=== PATIENT | male | born 1950 | race Caucasian/White ===

== ENCOUNTER → 2016-09-10 | Outpatient (CLI) | payer OTHER ==
[~2016-09-10] MED LIST: ASPI81TA28 PO; CYAN10005 PO; DULA0.5I; FOLI1TAB7 PO; LISI-461 PO; LVMI; METF-384 PO; MODA1TAB PO; ROSU20TA PO
[2016-09-10 14:48] LABS: LYME DISEASE AB IGG POS (NEG)
[2016-09-10 14:49] LABS: LYME DISEASE AB IGM POS (NEG)
[2016-09-13 22:40] LABS: 18KDIGG BAND REACTIVE (NONREACTIVE); 23KDIGG BAND REACTIVE (NONREACTIVE); 23KDIGM BAND REACTIVE (NONREACTIVE); 28KDIGG BAND NONREACTIVE (NONREACTIVE); 30KDIGG BAND REACTIVE (NONREACTIVE); 39KDIGG BAND REACTIVE (NONREACTIVE); 39KDIGM BAND NONREACTIVE (NONREACTIVE); 41KDIGG BAND REACTIVE (NONREACTIVE); 41KDIGM BAND NONREACTIVE (NONREACTIVE); 45KDIGG BAND NONREACTIVE (NONREACTIVE); 58KDIGG BAND NONREACTIVE (NONREACTIVE); 66KDIGG BAND REACTIVE (NONREACTIVE); 93KDIGG BAND NONREACTIVE (NONREACTIVE)
== END | disposition home or self-care (01) ==
LOC: C.LABMFLN 07:46
PROVIDERS: ATTEND Psychiatry & Neurology Neurology
DX: R47.81 Slurred speech (principal)

== ENCOUNTER → 2016-09-16 | Outpatient (CLI) | payer OTHER ==
--- NOTE | 2016-09-19 14:45 | POLYSOMNOGRAPH REPORT ---
CLINICAL DATA: A 65-year-old male with BMI of 30.25 referred by myself and Dr. Martin with a history of severe hypersomnolence without definite loud snoring or witnessed apnea. Initially a combination of PSG/ MSLT was requested but a home sleep study was demanded by the insurance company. On the evening of 09/16/2016, a home sleep apnea test was performed using a LLUSTRE type 3 monitor. RECORDING RESULTS: Total recording time was 10 hours. The patient's estimated sleep time and patient monitoring time was 8.7 hours. RESPIRATORY DATA: Moderate sleep apnea was documented. The SARWAT was 15.7. There were 10 obstructive, 5 mixed, and 4 central apneic episodes. There were 117 hypopneic episodes. The longest respiratory event was 46 seconds. OXIMETRY DATA: Nocturnal hypoxemia was documented. Oxygen hector was 82%. Mean saturation was 91%. Time below 89% was 37 minutes. HEART RATE DATA: Heart rates ranged from 52-64 beats per minute. SNORING DATA: Snoring was reported throughout the night. IMPRESSION: Moderate obstructive sleep apnea with a respiratory event index of 15.7 with nocturnal hypoxemia. RECOMMENDATIONS: The patient would benefit from a repeat sleep study with CPAP. ARMIND
== END | disposition home or self-care (01) ==
LOC: C.NEUR 09:54
PROVIDERS: ATTEND Internal Medicine Pulmonary Disease
DX: G47.10 Hypersomnia, unspecified (principal)

== ENCOUNTER → 2016-09-24 | Outpatient (CLI) | payer OTHER ==
[~2016-09-24] VITALS: Ht 172.7 cm; Wt 84.9 kg
[2016-09-24 12:17] VITALS: BP 125/87; PULSE 114; Ht 172.7 cm; Wt 84.9 kg
== END ==
LOC: C.NEUR 12:07
PROVIDERS: ATTEND Internal Medicine Pulmonary Disease
DX: G47.33 Obstructive sleep apnea (adult) (pediatric) (principal)

== ENCOUNTER → 2016-10-31 | Outpatient (CLI) | payer OTHER ==
[2016-10-31 13:42] LABS: ESTIMATED AVERAGE GLUCOSE 249 mg/dl; HA1C FLAG Normal (Normal)
[2016-10-31 13:49] LABS: RATIO 41.3 mcg/mg (0-30.0)
[2016-10-31 14:13] LABS: ALT/SGPT 42 U/L (12-78); AST/SGOT 34 U/L (15-37); BLOOD UREA NITROGEN 18 mg/dl (7-18); BUN/CREATININE RATIO 13.1 (10-20); CALCIUM 9.4 mg/dl (8.5-10.1); CARBON DIOXIDE 26 mmol/L (21-32); CHLORIDE 101 mmol/L (98-107); CHOLESTEROL 145 mg/dl (0-200); GLUCOSE 167 mg/dl (70-99); POTASSIUM 4.6 mmol/L (3.5-5.1); SODIUM 137 mmol/L (136-145)
[2016-10-31 14:18] LABS: ALB/GLOB RATIO 0.9 (0.9-2); ALKALINE PHOSPHATASE 54 U/L (45-117); CHOLESTEROL/HDL RATIO 3.2; HDL CHOLESTEROL 45 mg/dl; LDL CHOLESTEROL CALCULATED 67 mg/dl; TRIGLYCERIDES 165 mg/dl (0-150); VERY LOW DENSITY LIPOPROT CALC 33 mg/dl
== END | disposition home or self-care (01) ==
LOC: C.LABMFLN 07:53
PROVIDERS: ATTEND Family Medicine
DX: E11.9 Type 2 diabetes mellitus without complications (principal); E78.5 Hyperlipidemia, unspecified

== ENCOUNTER → 2016-12-10 | Outpatient (CLI) | payer OTHER ==
[~2016-12-10] VITALS: Ht 160 cm; Wt 71.8 kg
[2016-12-10 13:07] VITALS: BP 122/77; PULSE 76; BMI 27.7
[2016-12-10 13:08] VITALS: BP 117/73; PULSE 78; Ht 160 cm; Wt 71.8 kg
== END | disposition home or self-care (01) ==
LOC: C.NEUR 12:22
PROVIDERS: ATTEND Physician Assistant Medical
DX: G47.33 Obstructive sleep apnea (adult) (pediatric) (principal); G47.50 Parasomnia, unspecified; R47.81 Slurred speech

== ENCOUNTER 2016-12-30 08:43 | Day surgery (SDC) | payer OTHER ==
[~2016-12-30] VITALS: Ht 172.7 cm; Wt 81.0 kg
[2016-12-30] VITALS (9 sets, daily range): BP systolic 121–141; BP diastolic 73–89; PULSE 58–71; TEMP 36.7–37.2; O2SAT 93–98; Ht 172.7 cm; Wt 81.0 kg
[2016-12-30] MEDS ORDERED: ASPI81TA28 PO (09:25)
[2016-12-30] MEDS ORDERED: ROSU20TA PO (09:25)
[2016-12-30] MEDS ORDERED: MODA1TAB PO (09:25)
[2016-12-30] MEDS ORDERED: LVMI (09:25)
[2016-12-30] MEDS ORDERED: CYAN10005 PO (09:25)
[2016-12-30] MEDS ORDERED: FOLI1TAB7 PO (09:25)
[2016-12-30] MEDS ORDERED: METF-384 PO (09:25)
[2016-12-30] MEDS ORDERED: LISI-461 PO (09:25)
[2016-12-30] MEDS ORDERED: DULA0.5I (09:25)
--- NOTE | 2016-12-30 10:44 | DIAGNOSTIC IMAGING REPORT ---
FLUOROSCOPICALLY GUIDED LUMBAR PUNCTURE CLINICAL HISTORY: ? Lymes disease. Headache. FLUOROSCOPY TIME: 0.3 minutes. A single image submitted. PROCEDURE: The procedure, risks and benefits were discussed with the patient including the risk of spinal headache, bleeding and infection. The patient agreed to the procedure and informed written consent was obtained. The procedure was performed by Dr. Celestin following a timeout. The left L4-L5 interlaminar space was targeted. Skin overlying the space was prepped and draped in the usual sterile fashion and local anesthesia was achieved with 1% lidocaine. Under intermittent fluoroscopic guidance, a 20-gauge x 3 1/2 in. Sprotte needle was inserted into the thecal sac. A total of 10 cc of clear, colorless cerebral spinal fluid was obtained and spread amongst 4 vials. The patient tolerated the procedure well. There were no immediate complications. The specimens were sent to the laboratory at the request of the referring physician. IMPRESSION: Successful fluoroscopic guided lumbar puncture with removal of 10 cc of clear, colorless cerebral spinal fluid. No immediate complications. Opening pressure was 17 cm of H20. Electronically signed by: Chaka Celestin M.D. 12/30/2016 10:42 AM Dictated Date/Time: 12/30/2016 10:42 AM
--- NOTE | 2016-12-30 10:44 | Discharge Instructions ---
Discharge Instructions Procedure Procedure Date: December 30, 2016. Reason for visit: Lyme Disease W/Opening Pressure. Discharge Discharge Date: December 30, 2016. Discharge Diagnosis: same Instructions Activity Recommendations: No limitations Return to School/Work: no limitations Recommended Home Diet: Resume Previous Diet Provider Instructions: ACTIVITY RECOMMENDATIONS: * Rest today. * Resume regular activity in one day. MEDICATIONS: * May take Tylenol or Ibuprofen as needed for pain. DIET: * Resume previous diet. SPECIAL CARE INSTRUCTIONS: Call your doctor if: * Temperature above 101 degrees F. * Pain not relieved by pain medicine ordered. * Increased drainage or redness from incision. * Notify your doctor with any questions or concerns. Call your doctor or go to the nearest Emergency Department if you experience: * Increased chest pain or shortness of breath. FOLLOW UP VISIT: Follow-up with Referring Physician as scheduled. Allergies Coded Allergies: Amoxicillin (Verified Allergy, Unknown, "long time ago can't remember", 12/30/16) Atorvastatin (Verified Allergy, Unknown, "can't remember", 12/30/16) Simvastatin (Verified Allergy, Unknown, "can't remember", 12/30/16) Uncoded Allergies: ASPIRIN-DIPYRIDAMOLE (Allergy, Unknown, "severe headache", 12/30/16) [place] Recommendations: Call your doctor if: * Temperature above 101 degrees * Pain not relieved by pain medicine ordered * There is increased drainage or redness from any incision * You have any unanswered questions or concerns. Your Doctors Instructions noted above were prepared by provider Chaka Celestin. Patient Signature Section: Patient Instructions Signature Page Gopal Joy Patient (or Guardian) Signature/Date: I have read and understand the instructions given to me by my caregivers. Caregiver/RN/Doctor Signature/Date: The above-named patient and/or guardian has received patient instructions on this date. + Original Patient Signature Page (only) stays with chart. Please make copy for patient.
[2016-12-30] MEDS ORDERED: ACETAMINOPHEN 500 MG TAB PO PRN (10:45)
[2016-12-30 11:06] LABS: CSF APPEARANCE CLEAR; CSF COLOR COLORLESS; CSF XANTHOCHROMIC NO XANTHOCHROMIA
[2016-12-30 11:23] LABS: CSF TOTAL PROTEIN 106.6 mg/dl (15.0-45.0)
[2017-01-02 20:41] LABS: ALBUMIN 3.9 g/dL (3.2-4.6); IGG CSF 8.9 mg/dL (0.8-7.7); IGG SERUM 911 mg/dL (694-1618); LYME DNA PCR CSF OR SYNOVIAL Not detected (Not Detected); LYME DNA SOURCE CSF; LYME IGG BAND PATTERN CSF 18kD; LYME IGM CSF NO BANDS DETECTED; MYELIN BASIC PROTEIN 663 <2.0 mcg/L (0.0-4.0)
== END 2016-12-30 14:42 | disposition home or self-care (01) ==
LOC: C.ACU 08:43
PROVIDERS: ATTEND Psychiatry & Neurology Neurology
DX: R51 Headache (principal)

== ENCOUNTER → 2017-01-27 | Outpatient (CLI) | payer OTHER ==
--- NOTE | 2017-01-31 13:24 | EEG Procedure Note ---
EEG Procedure Note Date of Service Jan 27, 2017. Start / End Times Start Time: 01/27/2017 at 1:48 PM End Time: 01/28/2017 at 12:32 PM Referring Physician Jasen Richter History This is a 66-year-old male with episodes of cataplexy. Ambulatory EEG for further evaluation of possible seizure etiology. Home Medication List Scheduled Aspirin (Aspirin Ec), 81 MG PO DAILY Cyanocobalamin (Vitamin B-12), 1,000 MCG PO QPM Dulaglutide (Trulicity), WK Folic Acid (Folvite), 1 TAB PO DAILY Insulin Detemir (Levemir), 60 HS Lisinopril (Zestril), 10 MG PO DAILY Metformin Hcl (Glucophage), 1,000 MG PO BID Modafinil (Provigil), 200 MG PO DAILY Rosuvastatin Calcium (Crestor), 1 TAB PO QPM Description This is a 21 electrode EEG with a single channel dedicated to limited EKG. The electrodes were placed in accordance with the International 10-20 system. Good technical quality At the start of the recording the patient was in an awake state. Background was well organized and composed of symmetric mixed alpha and beta frequencies. There was a symmetric well-formed moderate amplitude 8-9 Hz posterior dominant rhythm that was reactive to eye opening and closure. Sleep was indicated by vertex waves, symmetric sleep spindles, and slow wave sleep. Patient journal was returned and reviewed. At 12:18pm and 12:22pm on January 28 the patient documented "shot at birdies and experienced weakness in my knees". EEG was carefully reviewed before and after reported events. There was no changes to normal awake EEG background, but EEG recording appeared to be stopped 10 minutes later after last reported events. Interpretation This is a normal 24-hour ambulatory EEG. There was no electrographic seizures or epileptiform discharges. Clinical Correlation Episodes as described above as weakness in the knees did not have any EEG correlation. A normal EEG does not rule out epilepsy if there is a strong clinical suspicion or for clinical events not captured.
== END | disposition home or self-care (01) ==
LOC: C.NEUR 13:22
PROVIDERS: ATTEND Psychiatry & Neurology Neurology
DX: G47.411 Narcolepsy with cataplexy (principal)

== ENCOUNTER → 2017-02-11 | Outpatient (CLI) | payer OTHER ==
[~2017-02-11] VITALS: Ht 172.7 cm; Wt 81.1 kg
[2017-02-11 14:56] VITALS: BP 126/72; PULSE 65; Ht 172.7 cm; Wt 81.1 kg
== END | disposition home or self-care (01) ==
LOC: C.NEUR 14:22
PROVIDERS: ATTEND Internal Medicine Pulmonary Disease
DX: G47.33 Obstructive sleep apnea (adult) (pediatric) (principal); G47.411 Narcolepsy with cataplexy

== ENCOUNTER → 2017-02-27 | Outpatient (CLI) | payer OTHER ==
[2017-02-27 14:02] LABS: ESTIMATED AVERAGE GLUCOSE 212 mg/dl; HA1C FLAG Normal (Normal)
[2017-02-27 14:25] LABS: BLOOD UREA NITROGEN 14 mg/dl (7-18); BUN/CREATININE RATIO 12.9 (10-20); CALCIUM 10.1 mg/dl (8.5-10.1); CARBON DIOXIDE 29 mmol/L (21-32); CHLORIDE 100 mmol/L (98-107); GLUCOSE 226 mg/dl (70-99); PHOSPHORUS 3.1 mg/dl (2.5-4.9); POTASSIUM 4.6 mmol/L (3.5-5.1); SODIUM 135 mmol/L (136-145)
== END | disposition home or self-care (01) ==
LOC: C.LABMFLN 11:52
PROVIDERS: ATTEND Family Medicine
DX: E11.65 Type 2 diabetes mellitus with hyperglycemia (principal)

== ENCOUNTER → 2017-06-04 | Outpatient (CLI) | payer OTHER ==
[2017-06-04 13:44] LABS: BASO ABS # 0.09 K/uL (0-0.2); COMPLETE YES; EOS % 5.5 %; HEMATOCRIT 40.6 % (42-52); IG% 0.2 %; LYMPH % 19.3 %; MEAN CORPUSCULAR HEMOGLOBIN 30.2 pg (25-34); MEAN CORPUSCULAR HGB CONC 33.5 g/dl (32-36); MEAN PLATELET VOLUME 9.8 fL (7.4-10.4); MONO % 8.8 %; NEUT % 65.2 %; PLATELET COUNT 250 K/uL (130-400); RED BLOOD COUNT 4.51 M/uL (4.7-6.1); WHITE BLOOD COUNT 9.32 K/uL (4.8-10.8)
[2017-06-04 13:47] LABS: BLOOD UREA NITROGEN 15 mg/dl (7-18); BUN/CREATININE RATIO 14.7 (10-20); CALCIUM 9.1 mg/dl (8.5-10.1); CARBON DIOXIDE 29 mmol/L (21-32); CHLORIDE 104 mmol/L (98-107); GLUCOSE 75 mg/dl (70-99); PHOSPHORUS 4.1 mg/dl (2.5-4.9); POTASSIUM 4.5 mmol/L (3.5-5.1); SODIUM 138 mmol/L (136-145)
[2017-06-04 14:05] LABS: ESTIMATED AVERAGE GLUCOSE 183 mg/dl; HA1C FLAG Normal (Normal)
== END | disposition home or self-care (01) ==
LOC: C.LABMFLN 08:13
PROVIDERS: ATTEND Family Medicine
DX: E11.65 Type 2 diabetes mellitus with hyperglycemia (principal)

== ENCOUNTER → 2017-12-02 | Outpatient (CLI) | payer OTHER, MEDICARE ==
[~2017-12-02] MED LIST changes: -FOLI1TAB7 PO; +FOLI1TAB8 PO
[2017-12-02 13:46] LABS: HEMOGLOBIN A1C 9.3 % (4.5-5.6)
[2017-12-02 14:08] LABS: ALBUMIN 3.7 gm/dl (3.4-5.0); ALT/SGPT 44 U/L (12-78); BLOOD UREA NITROGEN 16 mg/dl (7-18); CALCIUM 9.4 mg/dl (8.5-10.1); CARBON DIOXIDE 29 mmol/L (21-32); CHOLESTEROL 165 mg/dl (0-200); CREATININE 1.21 mg/dl (0.60-1.40); GLUCOSE 107 mg/dl (70-99); POTASSIUM 4.8 mmol/L (3.5-5.1); SODIUM 135 mmol/L (136-145)
[2017-12-02 14:11] LABS: ALKALINE PHOSPHATASE 62 U/L (45-117); AST/SGOT 39 U/L (15-37); LDL CHOLESTEROL CALCULATED 75 mg/dl; TOTAL PROTEIN 7.8 gm/dl (6.4-8.2)
== END | disposition home or self-care (01) ==
LOC: C.LABMFLN 08:52
PROVIDERS: ATTEND Family Medicine Adult Medicine
DX: E11.65 Type 2 diabetes mellitus with hyperglycemia (principal); E78.5 Hyperlipidemia, unspecified

== ENCOUNTER → 2018-03-23 | Outpatient (CLI) | payer OTHER, MEDICARE ==
[2018-03-23 18:49] LABS: ALBUMIN 3.6 gm/dl (3.4-5.0); BLOOD UREA NITROGEN 21 mg/dl (7-18); CALCIUM 9.6 mg/dl (8.5-10.1); CARBON DIOXIDE 27 mmol/L (21-32); CREATININE 1.15 mg/dl (0.60-1.40); GLUCOSE 151 mg/dl (70-99); PHOSPHORUS 3.8 mg/dl (2.5-4.9); POTASSIUM 4.7 mmol/L (3.5-5.1); SODIUM 137 mmol/L (136-145)
[2018-03-24 06:17] LABS: HEMOGLOBIN A1C 7.7 % (4.5-5.6)
== END | disposition home or self-care (01) ==
LOC: C.LABMFLN 14:11
PROVIDERS: ATTEND Family Medicine
DX: E11.65 Type 2 diabetes mellitus with hyperglycemia (principal)